=== PATIENT | female | born 1995 | race Hispanic/Latino ===

== ENCOUNTER 2018-05-06 14:34 | Emergency (ER) | payer BC ==
[2018-05-06 15:00] LABS: #Basophils 0.1 thou/uL (0.0-0.2); #Eosinphils 0.4 thou/uL (0.0-0.7); #Lymphocytes 2.4 thou/uL (1.20-3.40); #Monocytes 0.9 thou/uL (0.11-0.59); #Neutrophils 5.4 thou/uL (1.40-6.50); %Eosinophils 3.9 % (0.0-10.0); %Lymphocytes 26.2 % (28.0-48.0); %Monocytes 9.9 % (0.0-4.0); %Neutrophils 59.1 % (31.0-61.0); Hemoglobin 14.7 g/dL (12.0-16.0); Mean Corpuscular HGB CONC 35.2 g/dL (32.0-36.0); Mean Corpuscular Hemoglobin 30.3 pg (25.0-35.0); Mean Corpuscular Volume 86.1 fL (78.0-98.0); Mean Platelet Volume 8.5 fL (7.4-10.4); Platelet Count 157 thou/uL (130-400); RBC Distribution Width 11.3 % (11.5-14.5); Red Blood Cell (RBC) Count 4.85 mill/uL (4.00-5.20); White Blood Cell (WBC) Count 9.2 thou/uL (4.8-10.8)
[2018-05-06] MEDS ORDERED: Acetaminophen 500 MG TAB ONE (15:00)
[2018-05-06 15:12] LABS: Bilirubin Small (Negative); Blood, Urine Large (Negative); Glucose, Urine (Dipstick) Negative (Negative); Leukocyte Moderate (Negative); Nitrite Negative (Negative); Protein, Urine (Dipstick) 30 mg/dL (Neg-Trace); Urobilinogen 0.2 mg/dL (0.2-1.0)
[2018-05-06 15:16] LABS: Clarity Hazy (Clear); Pregnancy Test - Urine (BHCG) Negative (Negative); Pregu Control Background? CLEAR/WHITE (CLR/WHITE); Pregu Control Bar Appear? YES (CONTROL BAR)
[2018-05-06 15:18] LABS: ALT (SGPT) 16 U/L (8-55); AST (SGOT) 16 U/L (5-34); Alkaline Phosphatase 58 U/L (40-150); Anion Gap 16 mmol/L (10-20); BUN (Urea Nitrogen) 20 mg/dL (7.0-18.7); Bilirubin, Total 0.7 mg/dL (0.2-1.2); Calc. Creatinine Clearance 0 mL/min (70-130); Calcium 9.5 mg/dL (7.8-10.44); Carbon Dioxide 22 mmol/L (22-29); Chloride 103 mmol/L (98-107); Estimated GFR-MDRD 76; Globulin 3.1 g/dL (2.4-3.5); Glucose 95 mg/dL (70-105); Lipase 21 U/L (8-78); Potassium 4.2 mmol/L (3.5-5.1); Protein, Total 7.1 g/dL (6.0-8.3); Sodium 137 mmol/L (136-145)
[2018-05-06 15:20] LABS: Bacteria/HPF 2+ HPF (None Seen); RBC/HPF 21-50 HPF (0-3); Squamous Epithelial 21-50 HPF (0-3)
[2018-05-06] MEDS ORDERED: Ketorolac Tromethamine 30 MG/ML VIAL ONE (15:35)
[2018-05-06] MEDS ORDERED: cefTRIAXone\\ROCEPHIN 2 GM VIAL ONE (16:10)
[2018-05-06] MEDS ORDERED: Sodium Chloride 0.9% 100 ML ONE (16:14)
== END 2018-05-06 18:12 | disposition home or self-care (01) ==
LOC: SCSER 14:34
DX: N12 Tubulo-interstitial nephritis, not specified as acute or chronic (principal); B37.3 Candidiasis of vulva and vagina; F17.200 Nicotine dependence, unspecified, uncomplicated
CPT/HCPCS: 80053; 81003; 81015; 81025; 83605; 83690; 85025; 87081; 87086; 87430; 96361; 96365; 96375; J0696; J1885; J7050

== ENCOUNTER 2018-05-07 17:22 | Inpatient (IN) | payer BC, SELFPAY ==
[2018-05-07 18:33] LABS: #Eosinphils 0.2 thou/uL (0.0-0.7); #Lymphocytes 0.9 thou/uL (1.20-3.40); #Neutrophils 11.7 thou/uL (1.40-6.50); %Basophils 0.3 % (0.0-1.0); %Eosinophils 1.2 % (0.0-10.0); %Lymphocytes 6.7 % (28.0-48.0); %Monocytes 7.4 % (0.0-4.0); %Neutrophils 84.4 % (31.0-61.0); Hemoglobin 13.7 g/dL (12.0-16.0); Mean Corpuscular HGB CONC 33.5 g/dL (32.0-36.0); Mean Corpuscular Hemoglobin 30.4 pg (25.0-35.0); Mean Corpuscular Volume 90.8 fL (78.0-98.0); Platelet Count 174 thou/uL (130-400); RBC Distribution Width 10.7 % (11.5-14.5); White Blood Cell (WBC) Count 13.8 thou/uL (4.8-10.8)
[2018-05-07 18:56] LABS: ALT (SGPT) 29 U/L (8-55); AST (SGOT) 25 U/L (5-34); Albumin 4.1 g/dL (3.5-5.0); Alkaline Phosphatase 85 U/L (40-150); Anion Gap 12 mmol/L (10-20); BUN (Urea Nitrogen) 11 mg/dL (7.0-18.7); Bilirubin, Total 0.2 mg/dL (0.2-1.2); Calc. Creatinine Clearance 0 mL/min (70-130); Calcium 9.3 mg/dL (7.8-10.44); Carbon Dioxide 24 mmol/L (22-29); Chloride 103 mmol/L (98-107); Estimated GFR-MDRD 88; Globulin 3.3 g/dL (2.4-3.5); Glucose 103 mg/dL (70-105); Potassium 3.6 mmol/L (3.5-5.1); Protein, Total 7.4 g/dL (6.0-8.3); Sodium 135 mmol/L (136-145)
[2018-05-07] MEDS ORDERED: Ketorolac Tromethamine 30 MG/ML VIAL ONE (18:56)
[2018-05-07] MEDS ORDERED: cefTRIAXone\\ROCEPHIN 2 GM VIAL ONE (18:57)
[2018-05-07] MEDS ORDERED: Acetaminophen 500 MG TAB ONE (19:31)
[2018-05-07 19:41] LABS: Bilirubin Negative (Negative); Blood, Urine Large (Negative); Clarity CLOUDY (Clear); Glucose, Urine (Dipstick) Negative (Negative); Leukocyte Large (Negative); Nitrite Negative (Negative); Protein, Urine (Dipstick) Negative (Neg-Trace); Specific Gravity, Urine 1.018 (1.002-1.036); Urobilinogen 0.2 mg/dL (0.2-1.0); pH, Urine 6.5 (5.0-9.0)
[2018-05-07 19:42] LABS: Bacteria/HPF None Seen HPF (None Seen); Hyaline Casts/LPF 4-6 HYALINE CAST LPF (0-3 Hyaline); Pathc Cast-AUWi Flag 0.72 (0-2.49); WBC/HPF 21-50 HPF (0-3)
[2018-05-07 19:43] LABS: Yeast-AUWi Flag 68.1 (0-25.0)
[2018-05-07 19:56] LABS: RBC/HPF 0-3 HPF (0-3); Yeast-All Forms None Seen HPF (None Seen)
[2018-05-07] MEDS ORDERED: Azithromycin 250 MG TAB ONE (20:54)
--- NOTE | 2018-05-07 21:26 | CT ---
CT ABDOMEN AND PELVIS WITHOUT CONTRAST WITH STONE PROTOCOL: HISTORY: Kidney infection. COMPARISON: None. FINDINGS: Mild atelectatic changes in the lung bases. The spleen is enlarged, measuring 12 cm. Punctate calculus, inferior pole, right kidney, measuring 2 mm. Punctate calculus, superior pole, le ft kidney, measuring less than 1 mm. No hydroureteronephrosis. Numerous small, periaortic retroperitoneal lymph nodes are present. Adnex al hypodensities are present bilaterally with some mass effect upon the rectosigmoid junction, which may represent enlarged bilateral ovaries. The pancreas is felt to be visualized and appears normal. No dilated loops of large or small bowel. The skeleton is unremarkable. IMPRESSION: 1. Bilateral punctate renal calculi without evidence of recently passed stone or obstructive uropath y. 2. Normal appendix. 3. Splenic size is at the upper limits of normal. POS: [facility]
[2018-05-07] MEDS ORDERED: Ketorolac Tromethamine 30 MG/ML VIAL IVP PRN (22:31)
[2018-05-07] MEDS ORDERED: Ondansetron HCl/PF 4 MG/2 ML Vial IVP PRN (22:33)
[2018-05-07] MEDS: Ondansetron ODT 4 MG TAB SL PRN (22:39)
[2018-05-07] MEDS: Sodium Chloride 0.9% 1,000 ML IV SCH (22:40)
[2018-05-07] MEDS: cefTRIAXone\\ROCEPHIN 2 GM in Sodium Chloride 0.9% 100 ML IVPB SCH ×2 (22:41→22:56)
[2018-05-07 22:58] VITALS: BMI 23.9
[2018-05-08] MEDS: Acetaminophen 325 MG TAB PO PRN ×4 (02:37→16:48)
[2018-05-08] MEDS ORDERED: Vancomycin HCl 1 GM in Premix Bag 1 BAG IVPB SCH (05:00)
[2018-05-08] MEDS: HYDROcodone/Acetaminophen 5/325 mg Tablet PO PRN ×2 (05:34→10:18)
[2018-05-08] MEDS: Ondansetron ODT 4 MG TAB SL PRN (05:34)
[2018-05-08] MEDS: Sodium Chloride 0.9% 1,000 ML IV SCH (05:35)
[2018-05-08 05:39] LABS: #Eosinphils 0.2 thou/uL (0.0-0.7); #Lymphocytes 1.1 thou/uL (1.20-3.40); #Monocytes 0.9 thou/uL (0.11-0.59); #Neutrophils 7.7 thou/uL (1.40-6.50); %Eosinophils 1.8 % (0.0-10.0); %Lymphocytes 11.2 % (28.0-48.0); Hemoglobin 11.3 g/dL (12.0-16.0); Mean Corpuscular HGB CONC 33.2 g/dL (32.0-36.0); Mean Corpuscular Hemoglobin 30.3 pg (25.0-35.0); Mean Corpuscular Volume 91.4 fL (78.0-98.0); Mean Platelet Volume 8.6 fL (7.4-10.4); Platelet Count 131 thou/uL (130-400); RBC Distribution Width 10.7 % (11.5-14.5); Red Blood Cell (RBC) Count 3.73 mill/uL (4.00-5.20); White Blood Cell (WBC) Count 9.8 thou/uL (4.8-10.8)
--- NOTE | 2018-05-08 05:43 | HP ---
CHIEF COMPLAINT: Back pain and fever with sore throat. HISTORY OF PRESENT ILLNESS: This patient is a 22-year-old female who presents with a history of phar yngitis present for a week. The patient has had a very high fever associated with these. She presen karolina to the emergency department; however, with worsening costovertebral angle tenderness on the right . She states she was seen in an outside ED the day prior and was diagnosed with a kidney infection a nd was sent home on antibiotics, but she was getting worse. She also reported some vaginal symptoms including itching and swelling. She also had some associated dysuria and frequency. She denies any ill contacts. REVIEW OF SYSTEMS: Notable for those things mentioned in the history of present illness, an 11 syste m review was otherwise negative. PAST MEDICAL HISTORY: None. PAST SURGICAL HISTORY: None. FAMILY HISTORY: Mother reports she has heart problems, but there are no other family history issues. SOCIAL HISTORY: The patient does smoke 1-2 cigarettes per day, but nothing extensive. Denies alcoho l or drugs. ALLERGIES: None. CURRENT MEDICATIONS: None. PHYSICAL EXAMINATION: VITAL SIGNS: Temperature is 98.8, pulse 94, respirations 18, O2 sat 97% on room air, BP 100/67. GENERAL APPEARANCE: Age appropriate female in no distress. She is awake, alert, oriented, pleasant, cooperative. HEENT: PERRL. She has a significant white plaques over the tonsils and posterior pharynx. NECK: Notable for some tender cervical lymphadenopathy which is relatively small. CARDIOVASCULAR: Regular rate and rhythm without murmurs, gallops or rubs. LUNGS: Clear to auscultation bilaterally with good chest wall expansion and air exchange. ABDOMEN: Soft, nondistended. There is minimal tenderness to palpation across the pelvis and in the right costovertebral angle. EXTREMITIES: Warm and dry with no edema. SKIN: Intact. GENITOURINARY: Of note, exam was performed in the emergency department and the patient was noted to have some costovertebral angle tenderness and there was some bloody discharge present as well. LABORATORY DATA: White count is 13.8, hemoglobin 13.7, platelets 174, 84, neutrophils, 6.7% lymphocy shell. Sodium 135, potassium 3.6, chloride 103, BUN 11, creatinine 0.83. Liver enzymes were normal. Urinalysis shows large blood, large leukocyte esterase, 0-3 white cells, 21-50 white cells, no bacter ia seen, vaginitis panel negative for Trichomonas, Gardnerella or Luzmaria. Rapid Strep screen negati ve. CT abdomen and pelvis reveals bilateral punctate renal calculi with no evidence of recently pass ed stones or obstructive uropathy. The spleen size is upper limit of normal. ASSESSMENT AND PLAN: 1. Possible pyelonephritis. The patient has some evidence of urinary tract infection with some flan k pain that CT scan does not appear to support significant inflammation of the kidney which would be expected given the degree of fever and symptomatology. Should be covered with broad spectrum antibio tics until it can be sorted out. 2. Possible gonorrhea or chlamydial illness. The patient has a DNA probe pending. However, given t he constellation of symptoms with evidence of some pelvic inflammatory issues, vaginitis with dischar ge and pharyngitis, suspect the patient has some type of sexually transmitted infection, most likely with GC or chlamydia. We will cover with cefoxitin 2 grams. She has already received Rocephin and a zithromycin in the emergency department. She had vancomycin ordered. We will await those results an d consult ID. We will also check a Monospot as I do not see that has actually been ordered. We will also check a urine as I do not see that in the record, although the patient has been seen at least one other place prior to presenting here. It is possible these were done prior to her prese ntation here, but I do not see those in the record. In the meantime, we will give her fluids and chiquis n management.
[2018-05-08 05:56] LABS: Anion Gap 10 mmol/L (10-20); BUN (Urea Nitrogen) 6 mg/dL (7.0-18.7); Calc. Creatinine Clearance 117 mL/min (70-130); Calcium 8.8 mg/dL (7.8-10.44); Carbon Dioxide 23 mmol/L (22-29); Chloride 110 mmol/L (98-107); Estimated GFR-MDRD Greater than 90; Glucose 114 mg/dL (70-105); Sodium 139 mmol/L (136-145)
[2018-05-08 06:07] LABS: Pregnancy Test - Urine (BHCG) Negative (Negative); Pregu Control Background? CLEAR/WHITE (CLR/WHITE); Pregu Control Bar Appear? YES (CONTROL BAR)
[2018-05-08 06:46] LABS: MONO NEGATIVE CONTROL ZONE White (Negative) (White); MONO POSITIVE CONTROL Pink Line (Positive) (PINK/RED); Mononucleosis NEGATIVE (NEGATIVE)
[2018-05-08] MEDS: cefOXitin 2 GM in Sodium Chloride 0.9% 100 ML IVPB SCH ×3 (06:51→20:29)
[2018-05-08] MEDS ORDERED: hydrALAZINE 20 MG/ML VIAL SLOW IVP PRN (09:37)
[2018-05-08] MEDS ORDERED: HYDROcodone/Acetaminophen 5/325 mg Tablet PO PRN (09:37)
[2018-05-08] MEDS ORDERED: Senokot 8.6 MG TAB PO PRN (09:37)
[2018-05-08] MEDS ORDERED: Ondansetron HCl/PF 4 MG/2 ML Vial IVP PRN (09:37)
[2018-05-08] MEDS ORDERED: diphenhydrAMINE 25 MG CAP PO PRN (09:37)
[2018-05-08] MEDS ORDERED: Bisacodyl 5 MG TAB PO PRN (09:37)
[2018-05-08] MEDS: Ondansetron ODT 4 MG TAB PO PRN ×2 (10:16→16:27)
[2018-05-08] MEDS ORDERED: Aluminum & Magnesium Hydroxide 60 ML, Lidocaine 2% Viscous Solution 30 ML, diphenhydrAM... SSW PRN (10:18)
--- NOTE | 2018-05-08 10:22 | PDOC.EVN ---
Event Note - Event Note Event Note: pt seen and examined, h&p reviewed pt still with persistent fever despite empiric abx c/o sore throat, difficulty swallowing, has taken in more liquids than prior to adm exam: notable for erythema and exudate in posterior oropharyngeal space A/P symptomatic management with analgesics and IVF empiric abx as previously: vancomycin, ceftriaxone apprec ID c/s order U/S neck to eval for poss of peritonsillar abscess d/w pt and pt's mother at bedside
--- NOTE | 2018-05-08 11:36 | ULT ---
SONOGRAM NECK SOFT TISSUE: History: Throat pain. Evaluate for abscess. FINDINGS: Sonographic evaluation of each side of the neck was performed. Enlarged, reactive appearing lymph nod es along the right side of the neck measure up to 3.1 cm length x 1.5 cm depth. Left side of the neck shows lymph nodes measuring up to 3.6 cm x 1.4 cm. No fluid collections are apparent. No abnormalities of the submandibular glands. IMPRESSION: Reactive appearing enlarged bilateral jugular chain lymph nodes. POS: [facility]
[2018-05-08] MEDS: traMADol HCl 50 MG TAB PO PRN (12:47)
[2018-05-08] MEDS: Ibuprofen 100 MG/5 ML UDCUP PO PRN (18:54)
[2018-05-08 19:29] LABS: HIV (1/2) Antibody/Antigen Non-Reactive (NonReactive); HIV 1/2 INDEX 0.09 S/CO (<1.00)
[2018-05-08 22:20] LABS: Chlamydia by PCR Not Detected (NotDetected); GC by PCR Not Detected (NotDetected)
--- NOTE | 2018-05-08 23:44 | CON ---
DATE OF CONSULTATION: 05/08/2018 REASON FOR CONSULTATION: Sore throat, fever, question of UTI. HISTORY OF PRESENT ILLNESS: A 22-year-old otherwise healthy, who about a week and a half ago developed sore throat, was diagnosed with pharyngitis given antimicrobials without improvement, then she developed some dysuria, was given treatment for UTI, was given corticosteroids and she is still febrile, was admitted for evaluation. No headaches, no back pain, no cough or sputum production, no abdominal pain. She then described itching in the vaginal area and some discharge. No joint symptoms. No skin disorder. MEDICAL HISTORY: Negative. SURGICAL HISTORY: Negative. FAMILY HISTORY: Noncontributory. SOCIAL HISTORY: She is studying and works as well in the [employer], smoking 1-2 cigarettes per day. No drug use. ALLERGIES: None. CURRENT MEDICATIONS: In the hospital, she is on [place], lidocaine, diphenhydramine, Dulcolax, cefoxitin, hydralazine, ibuprofen, ondansetron, Zoloft, tramadol. PHYSICAL EXAMINATION: VITAL SIGNS: T-max 101.8,, now she is 100.4, BP 113/74, pulse 98, respirations 18, O2 sat 94%. SKIN: Not remarkable. HEENT: The patient has bilateral submandibular lymphadenopathy about 1 cm mobile. NECK: Supple, no jugular vein distention. LUNGS: Clear to auscultation and percussion. HEART: S1, S2, regular rate. No S3, S4. ABDOMEN: Soft, not distended or tender. No ascites. No bladder distention. EXTREMITIES: No joint inflammatory activity. Moves extremities equally. NEUROLOGIC: Cognitive function appears to be intact. LABORATORY DATA: White cell count 13.8, hemoglobin 13, platelets 174 with 84% neutrophils. White cell count down to 9.8, hemoglobin 11.3, platelets 131, 78% neutrophils. Chemistry with sodium 139, creatinine 0.72. Liver profile normal. Monospot was negative. Urinalysis with 21-50 WBCs. Microbiology: We had group A strep culture, which was negative. Trichomonas, Gardnerella and Luzmaria of vaginal tests were negative. Blood culture negative thus far. There is a soft tissue ultrasound of the neck area, which showed reactive appearing bilateral jugular chain lymph nodes. There is an abdomen and pelvis CT from 05/07/2018 with punctate renal calculi, but no obstructive uropathy. ASSESSMENT: 1. Pharyngitis. 2. Dysuria. 3. Fever. 4. Splenomegaly. DISCUSSION: Differential diagnosis includes a viral pharyngitis with urethritis and lymphadenopathy such as the ones caused by Lee Ann-Weinberg virus. CMV, herpes simplex and adenovirus, is the most likely scenario here. [place], other auto-immune processes less likely. We will submit serologies for the above. I believe PCR has been sent, which would detect adenovirus, but not the other ones. We will check HIV serology as well and chlamydia and Neisseria gonorrhea, DNA PCR from urine. It is unlikely that this syndrome represents a bacterial infection. MTDD
[2018-05-09] MEDS: cefOXitin 2 GM in Sodium Chloride 0.9% 100 ML IVPB SCH ×3 (05:37→21:36)
[2018-05-09] MEDS ORDERED: Promethazine HCl 12.5 MG in Sodium Chloride 0.9% 50 ML IVPB PRN (05:53)
[2018-05-09] MEDS ORDERED: Acetaminophen 1,000 MG in Premix Bag 1 BAG IVPB SCH (06:30)
[2018-05-09] MEDS ORDERED: ISOVUE-370 76%-LOCM 1 ML ONE (10:48)
[2018-05-09] MEDS: Ibuprofen 100 MG/5 ML UDCUP PO PRN (11:26)
[2018-05-09 12:35] LABS: #Eosinphils 0.1 thou/uL (0.0-0.7); #Lymphocytes 1.7 thou/uL (1.20-3.40); #Monocytes 0.8 thou/uL (0.11-0.59); #Neutrophils 6.2 thou/uL (1.40-6.50); %Basophils 0.4 % (0.0-1.0); %Eosinophils 0.8 % (0.0-10.0); %Lymphocytes 19.4 % (28.0-48.0); %Monocytes 9.2 % (0.0-4.0); %Neutrophils 70.2 % (31.0-61.0); Hemoglobin 12.1 g/dL (12.0-16.0); Mean Corpuscular HGB CONC 34.4 g/dL (32.0-36.0); Mean Corpuscular Hemoglobin 30.9 pg (25.0-35.0); Platelet Count 176 thou/uL (130-400); RBC Distribution Width 10.6 % (11.5-14.5); Red Blood Cell (RBC) Count 3.91 mill/uL (4.00-5.20); White Blood Cell (WBC) Count 8.9 thou/uL (4.8-10.8)
--- NOTE | 2018-05-09 12:44 | PDOC.PN ---
- Subjective Encounter Start Date: 05/09/18 Encounter Start Time: 12:43 Subjective: nsg notes rev, mariposa ovn, pt states she was feeling better until she went to -: take a shower this AM then afterwards was very SOB and couldn't take a deep -: breath. SpO2 was 89% at that time. Pt seen during neb txmt. Febrile this AM mouth and throat feel better per pt - was able to eat some salad and half a taco last night still c/o of external vaginal discomfort and swelling and continued menstruation x3 wks which she states is common post depo shot for her - Objective Resuscitation Status: Resuscitation Status FULL:Full Resuscitation Vital Signs & Weight: Vital Signs (12 hours) Temp Pulse Resp BP BP Pulse Ox 05/09/18 12:18 113 H 20 86 L 05/09/18 11:33 20 90 L 05/09/18 11:00 102.6 F H 110 H 16 120/73 89 L 05/09/18 08:00 100.0 F H 101 H 20 05/09/18 07:33 100.0 F H 101 H 20 105/63 90 L 05/09/18 05:39 102.8 F H 100 18 119/81 98 Weight Weight 131 lb I&O: 05/08/18 05/09/18 05/10/18 06:59 06:59 06:59 Intake Total 1208 450 120 Output Total 750 250 Balance 458 200 120 Result Diagrams: 05/09/18 12:24 05/08/18 05:07 Phys Exam - Physical Examination Constitutional: NAD HEENT: PERRLA, moist MMs, sclera anicteric Respiratory: no wheezing, no rales, no rhonchi, clear to auscultation bilateral diminished inspiratory effort 2/2 inspiration causing severe coughing Cardiovascular: RRR, no significant murmur, no rub Gastrointestinal: soft, non-tender, no distention, positive bowel sounds Musculoskeletal: no edema, pulses present Neurological: moves all 4 limbs Psychiatric: normal affect, A&O x 3 Dx/Plan - Plan * febrile illness * symptomatic management with analgesics and IVF * apprec ID c/s * d/w family and patient results of testing so far, concern for predominately viral as opposed to bacterial etiology hypoxia check CTA to r/o PE as pt has been essentially bedbound for several days at this point CXR unremarkable downtitrate supplemental O2 as tolerated - currently 100% on 2LNC pt denies neb treatment as having helped much continued menstruation continue to monitor recheck CBC, BMP if continued discomfort, t/c cleaner carpet and upholstery c/s for evaluation - original CT abd and pelvis was negative, t/c US? diet: as cornell activity: as cornell dvt ppx Review of Systems - Medications/Allergies Allergies/Adverse Reactions: Allergies Allergy/AdvReac Type Severity Reaction Status Date / Time No Known Drug Allergies Allergy Verified 05/08/18 04:27 Medications: Current Medications Acetaminophen (Tylenol) 650 mg PO Q4H PRN PRN Reason: Headache/Fever or Mild Pain Last Admin: 05/08/18 16:48 Dose: 650 mg Hydrocodone Bitart/Acetaminophen ([place] 5/325) 1 tab PO Q4H PRN PRN Reason: Moderate Pain (4-6) Last Admin: 05/09/18 05:38 Dose: 1 tab Albuterol/Ipratropium (Duoneb) 3 ml NEB NOW MARY ALICE Stop: 05/09/18 13:45 Last Admin: 05/09/18 12:18 Dose: 3 ml Bisacodyl (Dulcolax) 10 mg PO DAILYPRN PRN PRN Reason: Constipation Al Hydroxide/Mg Hydroxide 60 ml/ Lidocaine HCl 30 ml/Diphenhydramine HCl 75 mg 0 ml SSW PRN PRN PRN Reason: Mouth Irritation Last Admin: 05/08/18 12:46 Dose: 10 ml Diphenhydramine HCl (Benadryl) 25 mg PO Q4H PRN PRN Reason: Itching Hydralazine HCl (Apresoline) 10 mg SLOW IVP Q4H PRN PRN Reason: Systolic BP > 180 Cefoxitin Sodium 2 gm/ Sodium (Chloride) 100 mls @ 100 mls/hr IVPB Q8HR MARY ALICE Last Admin: 05/09/18 05:37 Dose: 100 mls Promethazine HCl 12.5 mg/ (Sodium Chloride) 50.5 mls @ 202 mls/hr IVPB Q6H PRN PRN Reason: Nausea Last Admin: 05/09/18 06:14 Dose: 50.5 mls Ibuprofen (Motrin) 400 mg PO Q8H PRN PRN Reason: Mild Pain (1-3) Last Admin: 05/09/18 11:26 Dose: 400 mg Ondansetron HCl (Zofran Odt) 4 mg PO Q6H PRN PRN Reason: Nausea/Vomiting Last Admin: 05/08/18 16:27 Dose: 4 mg Ondansetron HCl (Zofran) 4 mg IVP Q6H PRN PRN Reason: Nausea/Vomiting Last Admin: 05/09/18 05:38 Dose: 4 mg Senna (Senokot) 2 tab PO HSPRN PRN PRN Reason: Constipation Sertraline HCl (Zoloft) 25 mg PO DAILY [facility] Last Admin: 05/09/18 09:40 Dose: 25 mg Sodium Chloride (Flush - Normal Saline) 10 ml IVF Q12HR MARY ALICE Last Admin: 05/09/18 09:41 Dose: 10 ml Sodium Chloride (Flush - Normal Saline) 10 ml IVF PRN PRN PRN Reason: Saline Flush Tramadol HCl (Ultram) 50 mg PO Q4H PRN PRN Reason: Moderate Pain (4-6) Last Admin: 05/08/18 12:47 Dose: 50 mg
[2018-05-09 12:56] LABS: ALT (SGPT) 28 U/L (8-55); AST (SGOT) 21 U/L (5-34); Albumin 3.7 g/dL (3.5-5.0); Alkaline Phosphatase 73 U/L (40-150); Anion Gap 12 mmol/L (10-20); BUN (Urea Nitrogen) 7 mg/dL (7.0-18.7); Bilirubin, Total 0.2 mg/dL (0.2-1.2); Calc. Creatinine Clearance 114 mL/min (70-130); Calcium 9.1 mg/dL (7.8-10.44); Carbon Dioxide 25 mmol/L (22-29); Chloride 103 mmol/L (98-107); Estimated GFR-MDRD Greater than 90; Glucose 117 mg/dL (70-105); Potassium 3.6 mmol/L (3.5-5.1); Protein, Total 6.7 g/dL (6.0-8.3); Sodium 136 mmol/L (136-145)
--- NOTE | 2018-05-09 13:25 | RAD ---
PORTABLE CHEST: Date: 05/09/18 PROVIDED CLINICAL HISTORY: Shortness of breath. FINDINGS: The cardiac silhouette appears prominent, which may be at least partially on the basis of portable te chnique. The lungs are hypoinflated with nonspecific bibasilar parenchymal opacities. There is no dixie dence for pneumothorax or large effusion. IMPRESSION: Hypoinflated exam. Follow-up PA and lateral views of the chest recommended. POS: [facility]
--- NOTE | 2018-05-09 14:43 | CT ---
CT PULMONARY ANGIOGRAM WITH IV CONTRAST AND 3D POSTPROCESSING: Date: 05/09/18 HISTORY: Dyspnea, hypoxia, tachycardia. FINDINGS: There is good contrast opacification of the pulmonary arteria vasculature without filling defects to suggest pulmonary embolism. The thoracic aorta is well opacified without aneurysm or dissection. No p ericardial effusion is seen. There is a 1.0 cm mediastinal lymph node in the prevascular space. No pn eumothoraces noted. Small bilateral pleural effusions are seen with patchy consolidation in the lung bases. IMPRESSION: 1. No CT evidence of pulmonary embolism. 2. Bibasilar consolidation with small pleural effusions. POS: [facility]
--- NOTE | 2018-05-09 14:45 | CT ---
CT NECK SOFT TISSUE WITH IV CONTRAST: Date: 05/09/18 HISTORY: Cervical lymphadenopathy with oropharyngeal ulcers. FINDINGS: There is enlargement of the tonsils on either side without loculated fluid collections. There is also thickening/enlargement of the uvula. Accompanying bilateral Level 2 cervical lymphadenopathy is seen . The salivary glands and the thyroid gland appear normal. There are mucus retention cysts versus naty yps in the maxillary sinuses bilaterally. IMPRESSION: Findings are consistent with tonsillitis. No evidence of tonsillar abscess. POS: [facility]
[2018-05-09] MEDS: Ibuprofen 600 MG TAB PO PRN (16:52)
[2018-05-09] MEDS: traMADol HCl 50 MG TAB PO PRN (19:36)
[2018-05-10] MEDS: Acetaminophen 325 MG TAB PO PRN ×3 (04:13→21:04)
[2018-05-10] MEDS: Ondansetron ODT 4 MG TAB PO PRN ×2 (04:14→14:56)
[2018-05-10] MEDS ORDERED: Albuterol Sulfate 2.5 mg/3 ml Neb ONE (04:34)
[2018-05-10 04:45] LABS: #Eosinphils 0.3 thou/uL (0.0-0.7); #Lymphocytes 1.7 thou/uL (1.20-3.40); #Monocytes 0.9 thou/uL (0.11-0.59); %Basophils 0.1 % (0.0-1.0); %Eosinophils 3.5 % (0.0-10.0); %Monocytes 8.9 % (0.0-4.0); %Neutrophils 70.5 % (31.0-61.0); Hemoglobin 11.9 g/dL (12.0-16.0); Mean Corpuscular HGB CONC 34.1 g/dL (32.0-36.0); Mean Corpuscular Volume 91.1 fL (78.0-98.0); Mean Platelet Volume 8.1 fL (7.4-10.4); Platelet Count 162 thou/uL (130-400); RBC Distribution Width 10.8 % (11.5-14.5); Red Blood Cell (RBC) Count 3.83 mill/uL (4.00-5.20); White Blood Cell (WBC) Count 9.9 thou/uL (4.8-10.8)
[2018-05-10 05:02] LABS: Anion Gap 13 mmol/L (10-20); BUN (Urea Nitrogen) 9 mg/dL (7.0-18.7); Calc. Creatinine Clearance 122 mL/min (70-130); Calcium 9.1 mg/dL (7.8-10.44); Carbon Dioxide 27 mmol/L (22-29); Chloride 103 mmol/L (98-107); Estimated GFR-MDRD Greater than 90; Glucose 103 mg/dL (70-105); Potassium 3.8 mmol/L (3.5-5.1); Sodium 139 mmol/L (136-145)
[2018-05-10] MEDS: cefOXitin 2 GM in Sodium Chloride 0.9% 100 ML IVPB SCH ×2 (06:18→14:06)
[2018-05-10] MEDS: Albuterol Sulfate 2.5 mg/3 ml Neb NEB PRN (09:16)
[2018-05-10] MEDS: Ibuprofen 600 MG TAB PO PRN ×2 (09:54→18:06)
[2018-05-10] MEDS ORDERED: Benzonatate 100 MG CAP PO PRN (16:20)
[2018-05-10] MEDS ORDERED: guaiFENesin/Dextromethorphan 10 ML UDCUP PO PRN (16:20)
[2018-05-10] MEDS: guaiFENesin 200 MG TAB PO PRN (17:35)
--- NOTE | 2018-05-10 18:02 | PRG ---
DATE OF SERVICE: 05/10/2018 SUBJECTIVE: Feeling better and wanted to go home. A little bit of sore throat, but not much. No he adaches. No respiratory symptoms, abdominal pain. No diarrhea. OBJECTIVE: VITAL SIGNS: T-max 100.9. Temperature curve seems to be trending down. HEENT: Ocular movements conjugate. Oral cavity normal. NECK: Supple. LUNGS: Symmetric, clear breath sounds. HEART: S1, S2 regular rate. ABDOMEN: Soft, not distended. LABORATORY DATA: White cell count 9.9, hemoglobin 11.9, platelets 162, 70% neutrophils. Chlamydia a nd GC PCR negative. EBV serology and CMV serologies are pending. The respiratory virus PCR panel wa s negative. Cultures, no growth. ASSESSMENT AND DISCUSSION: Pharyngitis, dysuria, fever, splenomegaly; likely secondary to a viral pa thogen. EBV is the more likely culprit here. Consider discharge planning. Follow up with me in the outpatient setting to check on the results of the serology and see how she is doing.
--- NOTE | 2018-05-10 23:44 | PDOC.PN ---
- Subjective Encounter Start Date: 05/10/18 Encounter Start Time: 16:00 Subjective: nsg notes rev, marip[place] ovn -: pt states she feels much better -: pts mother at bedside - Objective Resuscitation Status: Resuscitation Status FULL:Full Resuscitation Vital Signs & Weight: Vital Signs (12 hours) Temp Pulse Resp BP Pulse Ox 05/10/18 20:00 99.9 F H 96 18 115/76 91 L 05/10/18 16:14 99.6 F 87 18 119/80 94 L 05/10/18 15:30 100 05/10/18 12:19 99.9 F H 106 H 18 114/76 96 05/10/18 12:00 96 Weight Weight 131 lb I&O: 05/09/18 05/10/18 05/11/18 06:59 06:59 06:59 Intake Total 450 1200 2009 Output Total 250 Balance 200 1200 2009 Result Diagrams: 05/11/18 04:46 05/11/18 04:46 Phys Exam - Physical Examination Constitutional: NAD HEENT: PERRLA, moist MMs, sclera anicteric Respiratory: no wheezing, no rales, no rhonchi, clear to auscultation bilateral Cardiovascular: RRR, no significant murmur, no rub Gastrointestinal: soft, non-tender, no distention, positive bowel sounds Musculoskeletal: no edema, pulses present Neurological: moves all 4 limbs Psychiatric: normal affect, A&O x 3 Dx/Plan - Plan cont current plan of care * febrile illness, improving * symptomatic management with analgesics and IVF * apprec ID c/s * d/w family and patient results of testing hypoxia, resolved still has cough and is easily "winded" with mild exertion (eg ambulating bed to bathroom) but without hypoxia d/w pt and her mother could go home today, but they would like to stay and be observed for another night continued menstruation continue to monitor recheck CBC, BMP genital tenderness is resolved per patient diet: as cornell activity: as cornell dvt ppx Review of Systems - Medications/Allergies Allergies/Adverse Reactions: Allergies Allergy/AdvReac Type Severity Reaction Status Date / Time No Known Drug Allergies Allergy Verified 05/08/18 04:27 Medications: Current Medications Acetaminophen (Tylenol) 650 mg PO Q4H PRN PRN Reason: Headache/Fever or Mild Pain Last Admin: 05/11/18 04:51 Dose: 650 mg Hydrocodone Bitart/Acetaminophen ([place] 5/325) 1 tab PO Q4H PRN PRN Reason: Moderate Pain (4-6) Last Admin: 05/09/18 05:38 Dose: 1 tab Albuterol Sulfate (Ventolin) 2.5 mg NEB Q4H PRN PRN Reason: Dyspnea/Wheezing/SOB Last Admin: 05/11/18 05:06 Dose: 2.5 mg Benzonatate (Tessalon) 100 mg PO TIDPRN PRN PRN Reason: Cough Bisacodyl (Dulcolax) 10 mg PO DAILYPRN PRN PRN Reason: Constipation Al Hydroxide/Mg Hydroxide 60 ml/ Lidocaine HCl 30 ml/Diphenhydramine HCl 75 mg 0 ml SSW PRN PRN PRN Reason: Mouth Irritation Last Admin: 05/08/18 12:46 Dose: 10 ml Diphenhydramine HCl (Benadryl) 25 mg PO Q4H PRN PRN Reason: Itching Guaifenesin (Organ-I Nr) 200 mg PO Q4H PRN PRN Reason: Cough Last Admin: 05/11/18 04:51 Dose: 200 mg Guaifenesin/Dextromethorphan (Robitussin Dm) 10 ml PO Q6H PRN PRN Reason: Cough Hydralazine HCl (Apresoline) 10 mg SLOW IVP Q4H PRN PRN Reason: Systolic BP > 180 Promethazine HCl 12.5 mg/ (Sodium Chloride) 50.5 mls @ 202 mls/hr IVPB Q6H PRN PRN Reason: Nausea Last Admin: 05/09/18 06:14 Dose: 50.5 mls Ibuprofen (Motrin) 600 mg PO Q6H PRN PRN Reason: Mild Pain (1-3) Last Admin: 05/10/18 18:06 Dose: 600 mg Ondansetron HCl (Zofran Odt) 4 mg PO Q6H PRN PRN Reason: Nausea/Vomiting Last Admin: 05/10/18 14:56 Dose: 4 mg Ondansetron HCl (Zofran) 4 mg IVP Q6H PRN PRN Reason: Nausea/Vomiting Last Admin: 05/09/18 05:38 Dose: 4 mg Senna (Senokot) 2 tab PO HSPRN PRN PRN Reason: Constipation Sertraline HCl (Zoloft) 25 mg PO DAILY MARY ALICE Last Admin: 05/10/18 08:57 Dose: 25 mg Tramadol HCl (Ultram) 50 mg PO Q4H PRN PRN Reason: Moderate Pain (4-6) Last Admin: 05/09/18 19:36 Dose: 50 mg
[2018-05-11] MEDS: guaiFENesin 200 MG TAB PO PRN (04:51)
[2018-05-11] MEDS: Acetaminophen 325 MG TAB PO PRN ×2 (04:51→09:47)
[2018-05-11] MEDS: Albuterol Sulfate 2.5 mg/3 ml Neb NEB PRN (05:06)
[2018-05-11 05:17] LABS: #Eosinphils 0.3 thou/uL (0.0-0.7); #Lymphocytes 2.4 thou/uL (1.20-3.40); #Monocytes 0.7 thou/uL (0.11-0.59); #Neutrophils 5.3 thou/uL (1.40-6.50); %Basophils 0.3 % (0.0-1.0); %Eosinophils 3.2 % (0.0-10.0); %Lymphocytes 27.5 % (28.0-48.0); %Monocytes 7.7 % (0.0-4.0); %Neutrophils 61.3 % (31.0-61.0); Hemoglobin 11.7 g/dL (12.0-16.0); Mean Corpuscular HGB CONC 33.3 g/dL (32.0-36.0); Mean Corpuscular Hemoglobin 30.5 pg (25.0-35.0); Mean Corpuscular Volume 91.5 fL (78.0-98.0); Mean Platelet Volume 8.2 fL (7.4-10.4); Platelet Count 190 thou/uL (130-400); RBC Distribution Width 10.7 % (11.5-14.5); Red Blood Cell (RBC) Count 3.83 mill/uL (4.00-5.20); White Blood Cell (WBC) Count 8.6 thou/uL (4.8-10.8)
[2018-05-11 05:41] LABS: Anion Gap 11 mmol/L (10-20); BUN (Urea Nitrogen) 8 mg/dL (7.0-18.7); Calc. Creatinine Clearance 114 mL/min (70-130); Carbon Dioxide 28 mmol/L (22-29); Chloride 104 mmol/L (98-107); Estimated GFR-MDRD Greater than 90; Glucose 93 mg/dL (70-105); Potassium 3.7 mmol/L (3.5-5.1); Sodium 139 mmol/L (136-145)
[2018-05-11 06:15] LABS: CMV IgG AB Less than 0.60 U/mL (0.00-0.59); CMV IgM AB Less than 30.0 AU/mL (0.0-29.9)
[2018-05-11 07:58] VITALS: BP 120/77; TEMP 99.2
[2018-05-11 11:19] LABS: EBV Early Antigen (EA) IgG AB <9.0 U/mL (0.0-8.9); EBV VCA IgM <36.0 U/mL (0.0-35.9); Nuclear AG IgG (EBNA) AB <18.0 U/mL (0.0-17.9)
--- NOTE | 2018-05-12 01:16 | DIS ---
DATE OF ADMISSION: 05/08/2018 DATE OF DISCHARGE: 05/11/2018 DISCHARGE DIAGNOSES: 1. Viral febrile illness. Bacterial infection workup negative so far. 2. Hypoxia, resolved. DISCHARGE MEDICATION: Sertraline at the home dose 25 mg daily. INHOUSE CONSULTATIONS: Infectious Disease, Dr. Haas. PROCEDURES DONE: 1. CT scan of the abdomen and pelvis upon presentation, which show bilateral punctate renal calculi without evidence of recently passed on obstructive uropathy. Splenic size upper limits of normal. 2. Soft tissue ultrasound of the neck, which shows reactive jugular chain lymphadenopathy bilaterall y. 3. CT angio of the chest which is negative for any evidence of pulmonary embolism. 4. CT scan of the neck, which shows findings consistent with tonsillitis without tonsillar abscess. PRIMARY CARE PHYSICIAN: Judith Dalton. HISTORY OF PRESENTING ILLNESS: Ms. Cole is a 22-year-old female without any significant past med ical history who presented to the emergency room with complaints of back pain, fever, and sore throat . She was started on antibiotics by an outside ER 1 day before the presentation for possible kidney infection. Upon presentation, she was hemodynamically stable. CT scan of the abdomen and pelvis was done, which was rather unremarkable. Vaginal panel was negative for Trichomonas and Gardnerella in the ER. Rapid Strep screen negative in the ER. Urinalysis had large blood, leukocyte esterase, whit e cells without any bacteria. She was admitted with a presumptive diagnosis of UTI on empiric antibi otics. Please see admission history and physical for further detail. HOSPITAL COURSE: The patient continued to have some fever and her initial workup was negative. For this reason, Dr. Haas from Infectious Disease was consulted. He did send multiple viral testings fo r her. The presumptive diagnosis was Lee Ann Weinberg, most of her workup has been negative that has bee n back including GC and chlamydia. She was negative for Monospot and HIV chlamydia. She was negativ e for CMV. Her EBV antigen, IgG antibody was high at 412. Eventually, she had symptomatic improvement and antibiotics were discontinued as a different diagnosi s on the time of discharge was viral febrile illness. WBC improved from 13.8-8.6 and the patient was asymptomatic and hemodynamically stable. She was discharged back home under the care of her mother. Discharge plan was discussed with the patient and her mother who verbalized understanding. PHYSICAL EXAMINATION: VITAL SIGNS: Before discharge, temperature 99.2, pulse of 88, respirations 20, saturating 97% on jarod m air, blood pressure 120/77. GENERAL: No acute distress, awake, alert, oriented x3. CHEST: Clear to auscultation without any wheezing, rales or rhonchi. Rhythm is regular without any murmurs or gallops. ABDOMEN: Soft, nontender and nondistended with positive bowel sounds. EXTREMITIES: Free of any cyanosis, clubbing, or edema. LABORATORY DATA: Blood culture negative x2. Viral PCR negative. Vaginitis screen negative, group A streptococcal throat culture negative.
== END 2018-05-11 12:22 | disposition home or self-care (01) | DRG 866 ==
LOC: ERS 17:22 → T4-A 21:56
PROVIDERS: ADMIT Family Medicine; ATTEND Family Medicine
DX: B34.9 Viral infection, unspecified (principal); R09.02 Hypoxemia; R16.1 Splenomegaly, not elsewhere classified; Z72.0 Tobacco use
CPT/HCPCS: 36415; 70491; 71045; 71275; 74176; 76536; 80048; 80053; 81003; 81015; 81025; 83605; 85025; 86308; 86644; 86645; 86663; 86664; 86665; 87040; 87070; 87081; 87389; 87430; 87480; 87491; 87510; 87591; 87633; 87660; 94640; 96365; 96366; 96367; 96375; A4216; J0131; J0694; J0696; J1885; J2405; J2550; J3370; J7050; J7611; J7620; Q0162

== ENCOUNTER 2018-07-06 13:15 | Emergency (ER) | payer SELFPAY ==
[2018-07-06 14:11] LABS: #Basophils 0.1 thou/uL (0.0-0.2); #Eosinphils 0.1 thou/uL (0.0-0.7); #Lymphocytes 2.2 thou/uL (1.20-3.40); #Monocytes 0.4 thou/uL (0.11-0.59); %Eosinophils 0.8 % (0.0-10.0); %Lymphocytes 28.6 % (28.0-48.0); %Monocytes 4.8 % (0.0-4.0); %Neutrophils 64.7 % (31.0-61.0); Hemoglobin 13.6 g/dL (12.0-16.0); Mean Corpuscular HGB CONC 35.3 g/dL (32.0-36.0); Mean Corpuscular Hemoglobin 29.3 pg (25.0-35.0); Mean Corpuscular Volume 83.1 fL (78.0-98.0); Mean Platelet Volume 8.5 fL (7.4-10.4); Platelet Count 215 thou/uL (130-400); RBC Distribution Width 10.6 % (11.5-14.5); Red Blood Cell (RBC) Count 4.63 mill/uL (4.00-5.20); White Blood Cell (WBC) Count 7.8 thou/uL (4.8-10.8)
[2018-07-06 14:14] LABS: Bilirubin Negative (Negative); Blood, Urine Moderate (Negative); Clarity Clear (Clear); Glucose, Urine (Dipstick) Negative (Negative); Leukocyte Negative (Negative); Nitrite Negative (Negative); Protein, Urine (Dipstick) Negative (Neg-Trace); Specific Gravity, Urine 1.015 (1.005-1.030); Urobilinogen 0.2 mg/dL (0.2-1.0)
[2018-07-06 14:18] LABS: Pregnancy Test - Urine (BHCG) Negative (Negative); Pregu Control Background? CLEAR/WHITE (CLR/WHITE); Pregu Control Bar Appear? YES (CONTROL BAR); Specific Gravity 1.015 (1.002-1.036)
[2018-07-06 14:24] LABS: ALT (SGPT) 14 U/L (8-55); AST (SGOT) 17 U/L (5-34); Albumin 4.6 g/dL (3.5-5.0); Alkaline Phosphatase 77 U/L (40-150); Anion Gap 12 mmol/L (10-20); BUN (Urea Nitrogen) 12 mg/dL (7.0-18.7); Bilirubin, Total 0.5 mg/dL (0.2-1.2); Calc. Creatinine Clearance 0 mL/min (70-130); Calcium 10.1 mg/dL (7.8-10.44); Carbon Dioxide 25 mmol/L (22-29); Chloride 106 mmol/L (98-107); Estimated GFR-MDRD 81; Globulin 3.4 g/dL (2.4-3.5); Glucose 135 mg/dL (70-105); Lipase 16 U/L (8-78); Potassium 3.5 mmol/L (3.5-5.1); Sodium 139 mmol/L (136-145)
[2018-07-06 14:29] LABS: Bacteria/HPF None Seen HPF (None Seen); Crystals/HPF 1+ AMORPH PHOS HPF (Negative); RBC/HPF 0-3 HPF (0-3); Squamous Epithelial 0-3 HPF (0-3); WBC/HPF 0-3 HPF (0-3)
[2018-07-08 20:15] LABS: Chlamydia by PCR Not Detected (NotDetected); GC by PCR Not Detected (NotDetected)
== END 2018-07-06 14:33 | disposition home or self-care (01) ==
LOC: SCSER 13:15
DX: N93.9 Abnormal uterine and vaginal bleeding, unspecified (principal); F32.9 Major depressive disorder, single episode, unspecified; F17.200 Nicotine dependence, unspecified, uncomplicated
CPT/HCPCS: 36415; 80053; 81003; 81015; 81025; 83690; 85025; 87480; 87491; 87510; 87591; 87660; 99284

== ENCOUNTER 2018-07-24 09:17 | Emergency (ER) | payer SELFPAY ==
[2018-07-24 09:57] LABS: #Basophils 0.1 thou/uL (0.0-0.2); #Eosinphils 0.1 thou/uL (0.0-0.7); #Lymphocytes 2.1 thou/uL (1.20-3.40); #Monocytes 0.4 thou/uL (0.11-0.59); #Neutrophils 4.9 thou/uL (1.40-6.50); %Basophils 0.8 % (0.0-1.0); %Eosinophils 1.9 % (0.0-10.0); %Lymphocytes 28.1 % (28.0-48.0); %Monocytes 5.1 % (0.0-4.0); %Neutrophils 64.1 % (31.0-61.0); Hemoglobin 13.2 g/dL (12.0-16.0); Mean Corpuscular HGB CONC 33.2 g/dL (32.0-36.0); Mean Corpuscular Hemoglobin 30.6 pg (25.0-35.0); Mean Corpuscular Volume 92.2 fL (78.0-98.0); Mean Platelet Volume 8.3 fL (7.4-10.4); Platelet Count 259 thou/uL (130-400); RBC Distribution Width 11.6 % (11.5-14.5); Red Blood Cell (RBC) Count 4.31 mill/uL (4.00-5.20); White Blood Cell (WBC) Count 7.6 thou/uL (4.8-10.8)
[2018-07-24 10:19] LABS: ALT (SGPT) 13 U/L (8-55); AST (SGOT) 15 U/L (5-34); Albumin 4.3 g/dL (3.5-5.0); Alkaline Phosphatase 77 U/L (40-150); Anion Gap 11 mmol/L (10-20); BUN (Urea Nitrogen) 9 mg/dL (7.0-18.7); Bilirubin, Total 0.5 mg/dL (0.2-1.2); Calc. Creatinine Clearance 0 mL/min (70-130); Calcium 9.6 mg/dL (7.8-10.44); Carbon Dioxide 21 mmol/L (22-29); Chloride 108 mmol/L (98-107); Estimated GFR-MDRD 90; Globulin 3.2 g/dL (2.4-3.5); Glucose 103 mg/dL (70-105); Lipase 14 U/L (8-78); Potassium 4.2 mmol/L (3.5-5.1); Protein, Total 7.5 g/dL (6.0-8.3); Sodium 136 mmol/L (136-145)
[2018-07-24 11:26] LABS: Bilirubin Negative (Negative); Blood, Urine Trace (Negative); Clarity CLOUDY (Clear); Glucose, Urine (Dipstick) Negative (Negative); Leukocyte Negative (Negative); Nitrite Negative (Negative); Protein, Urine (Dipstick) Negative (Neg-Trace); Specific Gravity, Urine 1.016 (1.002-1.036); Urobilinogen 0.2 mg/dL (0.2-1.0); pH, Urine 7.5 (5.0-9.0)
[2018-07-24 11:27] LABS: Pregnancy Test - Urine (BHCG) Negative (Negative); Pregu Control Background? CLEAR/WHITE (CLR/WHITE); Pregu Control Bar Appear? YES (CONTROL BAR); Specific Gravity 1.016 (1.002-1.036)
[2018-07-24 11:30] LABS: Bacteria/HPF None Seen HPF (None Seen); Hyaline Casts/LPF 4-6 HYALINE CAST LPF (0-3 Hyaline); Pathc Cast-AUWi Flag 1.01 (0-2.49); RBC/HPF 0-3 HPF (0-3); Squamous Epithelial 0-3 HPF (0-3)
== END 2018-07-24 11:45 | disposition home or self-care (01) ==
LOC: ERS 09:17
DX: N39.0 Urinary tract infection, site not specified (principal); F17.200 Nicotine dependence, unspecified, uncomplicated
CPT/HCPCS: 36415; 80053; 81003; 81015; 81025; 83690; 85025; 99284

== ENCOUNTER 2018-08-11 14:24 | Emergency (ER) | payer SELFPAY ==
[2018-08-11] MEDS ORDERED: Acetaminophen 325 MG TAB ONE (14:58)
[2018-08-11 15:05] LABS: #Basophils 0.1 thou/uL (0.0-0.2); #Eosinphils 0.1 thou/uL (0.0-0.7); #Monocytes 0.9 thou/uL (0.11-0.59); #Neutrophils 8.7 thou/uL (1.40-6.50); %Basophils 0.7 % (0.0-1.0); %Eosinophils 0.7 % (0.0-10.0); %Monocytes 7.8 % (0.0-10.0); %Neutrophils 73.8 % (42.0-75.0); Hemoglobin 13.3 g/dL (12.0-16.0); Mean Corpuscular HGB CONC 32.8 g/dL (32.0-36.0); Mean Corpuscular Hemoglobin 29.1 pg (27.0-31.0); Mean Corpuscular Volume 88.7 fL (78.0-98.0); Mean Platelet Volume 10.1 fL (7.4-10.4); Platelet Count 186 thou/uL (130-400); RBC Distribution Width 11.5 % (11.5-14.5); Red Blood Cell (RBC) Count 4.58 mill/uL (4.20-5.40); White Blood Cell (WBC) Count 11.8 thou/uL (4.8-10.8)
[2018-08-11 15:07] LABS: MONO NEGATIVE CONTROL ZONE White (Negative) (White); Mononucleosis NEGATIVE (NEGATIVE)
[2018-08-11 15:08] LABS: MONO POSITIVE CONTROL Pink Line (Positive) (PINK/RED)
[2018-08-11 15:15] LABS: ALT (SGPT) 19 U/L (8-55); AST (SGOT) 18 U/L (5-34); Albumin 4.6 g/dL (3.5-5.0); Alkaline Phosphatase 73 U/L (40-150); Anion Gap 16 mmol/L (10-20); BUN (Urea Nitrogen) 10 mg/dL (7.0-18.7); Bilirubin, Total 0.4 mg/dL (0.2-1.2); Calc. Creatinine Clearance 0 mL/min (70-130); Calcium 10.3 mg/dL (7.8-10.44); Carbon Dioxide 20 mmol/L (22-29); Chloride 107 mmol/L (98-107); Estimated GFR-MDRD Greater than 90; Globulin 3.5 g/dL (2.4-3.5); Glucose 89 mg/dL (70-105); Protein, Total 8.1 g/dL (6.0-8.3); Sodium 139 mmol/L (136-145)
[2018-08-11 16:03] LABS: Bilirubin Negative (Negative); Blood, Urine Moderate (Negative); Glucose, Urine (Dipstick) Negative (Negative); Leukocyte Negative (Negative); Nitrite Negative (Negative); Protein, Urine (Dipstick) Negative (Neg-Trace); Specific Gravity, Urine 1.025 (1.005-1.030); Urobilinogen 0.2 mg/dL (0.2-1.0)
[2018-08-11 16:04] LABS: Clarity Hazy (Clear)
[2018-08-11 16:08] LABS: Pregnancy Test - Urine (BHCG) Negative (Negative); Pregu Control Background? CLEAR/WHITE (CLR/WHITE); Pregu Control Bar Appear? YES (CONTROL BAR); Specific Gravity 1.025 (1.002-1.036)
[2018-08-11 16:11] LABS: Bacteria/HPF 1+ HPF (None Seen); WBC/HPF 0-3 HPF (0-3)
== END 2018-08-11 16:28 | disposition home or self-care (01) ==
LOC: SCSER 14:24
DX: J02.9 Acute pharyngitis, unspecified (principal); E86.0 Dehydration
CPT/HCPCS: 80053; 81003; 81015; 81025; 83605; 85025; 86308; 87077; 87081; 87086; 87430; 87804; 96360; 96361

== ENCOUNTER 2025-09-19 15:57 | Outpatient (CLI) | payer MEDICAID | END 2025-09-19 15:58 | disposition home or self-care (01) | LOC: SCSULT 15:57 | PROVIDERS: ATTEND Family Medicine | DX: O09.892 Supervision of other high risk pregnancies, second trimester (principal); Z3A.19 19 weeks gestation of pregnancy | CPT/HCPCS: 76805 ==